=== PATIENT | female | born 1995 | race Caucasian/White ===

== ENCOUNTER 2017-06-05 15:19 | Emergency (ER) | payer OTHER | END 2017-06-05 16:58 | disposition home or self-care (01) | LOC: FER 15:19 | DX: J20.9 Acute bronchitis, unspecified (principal); J32.9 Chronic sinusitis, unspecified; R19.7 Diarrhea, unspecified; F17.210 Nicotine dependence, cigarettes, uncomplicated | CPT/HCPCS: 71020; 94640 ==